=== PATIENT | female | born 1960 | race Native Hawaiian/Other Pacific Islander ===

== ENCOUNTER → 2018-04-20 | Outpatient (CLI) | payer OTHER | LOC: LAB.NP 10:15 | PROVIDERS: ATTEND Physician Assistant | DX: R30.0 Dysuria (principal) ==

== ENCOUNTER 2019-12-26 00:56 | Observation (INO) | payer OTHER ==
[2019-12-26] MEDS ORDERED: ALUM & MAG HYDROX-SIMETHICONE 30 ML, LIDOCAINE VISCOUS 2% 15 ML PO ONE ×2 (00:59)
[2019-12-26] MEDS ORDERED: ONDANSETRON ODT 8 MG TAB SL ONE (00:59)
[2019-12-26] MEDS ORDERED: SUCRALFATE 1 GM/10 ML 1 GM UD PO ONE (01:00)
[2019-12-26] MEDS ORDERED: ALUM & MAG HYDROX-SIMETHICONE 30 ML UD ONE (01:13)
[2019-12-26] MEDS ORDERED: LIDOCAINE HCL 2% (MOUTH-THROAT) 15 ML UD ONE (01:13)
[2019-12-26] MEDS ORDERED: SODIUM CHLORIDE 0.9% 1000ML 1,000 ML IVS ONE (01:36)
[2019-12-26] MEDS ORDERED: POTASSIUM CHLORIDE INJ 40 MEQ 40 MEQ in SODIUM CHLORIDE 0.9% 250ML 250 ML IVPB ONE (01:40)
[2019-12-26] MEDS ORDERED: MORPHINE SULFATE INJ 10 MG/ML VIAL ONE (01:43)
[2019-12-26] MEDS ORDERED: MORPHINE SULFATE INJ 10 MG/ML VIAL IV ONE (01:44)
--- NOTE | 2019-12-26 01:48 | RAD ---
Acute abdominal series on 12/26/2019 CLINICAL INDICATION: Severe epigastric pain COMPARISON: None FINDINGS: CHEST: The lungs are clear. Cardiac, hilar and mediastinal contours are within normal limits. Pulmonary vascularity is within normal limits. ABDOMEN: There is no free air. Mild stool is noted throughout the colon may represent mild constipation. Bowel gas pattern is nonspecific. No abnormal calcification or mass effect is noted. Mild degenerative changes are noted in the spine. IMPRESSION: 1. No acute cardiopulmonary disease. 2. Mild increased stool in the colon that may represent very mild constipation with an otherwise nonspecific abdomen. Electronically signed by: Alex Bean 12/26/2019 1:46 AM CDT
[2019-12-26] MEDS ORDERED: SODIUM CHLORIDE 0.9% 250ML 250 ML ONE (01:49)
[2019-12-26] MEDS ORDERED: POTASSIUM CHLORIDE 40mEq 20ML VIAL ONE (01:50)
[2019-12-26] MEDS ORDERED: PANTOPRAZOLE SODIUM IV 40 MG VIAL IV ONE (02:33)
--- NOTE | 2019-12-26 02:40 | CT ---
PROCEDURE: CT ABDOMEN PELVIS WITH IV CONTRAST CLINICAL HISTORY: severe epigastric pain TECHNIQUE: Contiguous axial images obtained through the abdomen and pelvis following the uneventful administration of IV contrast. Coronal and sagittal reformatted images were provided. This exam was performed according to our departmental dose-optimization program, which includes automated exposure control, adjustment of the mA and/or kV according to patient size and/or use of iterative reconstruction technique. COMPARISON: None available for comparison. FINDINGS: Lung bases: Clear Liver: The liver is enlarged. Gallbladder and biliary system: The gallbladder is distended. No calcified gallstones or gallbladder wall thickening. Pancreas: Unremarkable Spleen: Unremarkable Adrenals: Unremarkable Kidneys: Normal renal cortical enhancement. Excreted contrast within the renal collecting systems bilaterally. No hydronephrosis. Bowel: Intramural fat within portions of the small and large bowel which can be seen in the setting of prior inflammation. Moderate stool. Colonic diverticula without adjacent inflammatory change. No obstruction. No appreciable mucosal thickening. Appendix: The appendix is not definitively visualized. Pericecal suture material/clips suggestive of prior appendectomy. No findings to suggest acute appendicitis. Urinary bladder: The urinary bladder is partially decompressed. Reproductive: There has been a hysterectomy. No adnexal cysts or masses are identified. Lymph nodes: No pathologically enlarged lymph nodes. Peritoneum: No focal fluid collection. No free air. Vessels: Mild atherosclerotic disease. No abdominal aortic aneurysm. Abdominal wall: Small fat-containing umbilical hernia. Bones: Mild multilevel spondylosis. No acute fracture. IMPRESSION: 1. Distended gallbladder. No calcified gallstones or gallbladder wall thickening. 2. Moderate stool. No bowel obstruction. 3. Other findings as above. Electronically signed by: Emily Meza MD 12/26/2019 2:38 AM CDT
[2019-12-26] MEDS ORDERED: MAGNESIUM HYDROXIDE 30 ML UD PO ONE (02:53)
--- NOTE | 2019-12-26 03:07 | ED.PDOC ---
History of Present Illness - General Chief Complaint: Chest Pain/AL Stated Complaint: right breast pain, stomach pain Time Seen by Provider: 12/26/19 00:59 Source: patient Exam Limitations: no limitations - History of Present Illness Initial Comments: The patient is a 59-year-old female presented emergency room with a complaint of recent fairly abrupt onset chest pain. On examination however she has fairly significant tenderness to palpation in the epigastric area and in the left upper quadrant. She reports that the pain radiates to the right lower chest. She had one episode of vomiting. No fever. Pain started about 1 hour prior to arrival here. She was feeling fine prior to that. She does have a history of hypertension but no history of coronary artery disease. Timing/Duration: 1 hour Severity: severe Improving Factors: nothing Worsening Factors: other - Palpation Associated Symptoms: malaise, nausea/vomiting Allergies/Adverse Reactions: Allergies NO KNOWN ALLERGY Allergy (Verified 12/26/19 01:05) Home Medications: Ambulatory Orders Escitalopram [Lexapro] 10 mg PO DAILY 12/26/19 Lisinopril 10 mg PO DAILY 12/26/19 Rosuvastatin Calcium 10 mg PO DAILY 12/26/19 Review of Systems - Review of Systems Constitutional: States: malaise EENTM: States: no symptoms reported Respiratory: States: no symptoms reported Cardiology: States: chest pain Gastrointestinal/Abdominal: States: abdominal pain, nausea, vomiting Genitourinary: States: no symptoms reported Musculoskeletal: States: no symptoms reported Skin: States: no symptoms reported Neurological: States: no symptoms reported Endocrine: States: no symptoms reported All other Systems: No Change from Baseline Past Medical History (General) - Patient Medical History Hx Seizures: No Hx Stroke: No Hx Dementia: No Hx Asthma: No Hx of COPD: No Hx Cardiac Disorders: No Hx Congestive Heart Failure: No Hx Pacemaker: No Hx Hypertension: Yes Hx Thyroid Disease: No Hx Diabetes: No Hx Gastroesophageal Reflux: Yes Hx Renal Disease: No Hx Cancer: No Hx Hepatitis C: No Surgical History: appendectomy, Hysterectomy - Vaccination History Hx Tetanus, Diphtheria Vaccination: No Hx Influenza Vaccination: No Hx Pneumococcal Vaccination: No - Social History Hx Alcohol Use: Yes Family Medical History - Family History Mother Family History: Unknown Physical Exam - Physical Exam General Appearance: Alert, Anxious, Obvious distress Eye Exam: bilateral normal Ears, Nose, Throat: hearing grossly normal, normal ENT inspection, normal phary nx Neck: full range of motion, supple Respiratory: lungs clear, normal breath sounds, no respiratory distress, no accessory muscle use Cardiovascular/Chest: normal peripheral pulses, regular rate, rhythm, no edema, bradycardia Peripheral Pulses: radial,right: 2+, radial,left: 2+, dorsalis pedis,right: 2+, dorsalis pedis,left: 2+ Gastrointestinal/Abdominal: soft, other - See history of present illness. No palpable mass. Rectal Exam: deferred Back Exam: no CVA tenderness, no vertebral tenderness Extremity: normal range of motion, non-tender, normal inspection, no pedal edema, normal capillary refill Neurologic: logistics support II-XII nml as tested, alert, normal mood/affect, oriented x 3 Skin Exam: normal color Comments: Vital Signs - 24 hr 12/26/19 12/26/19 12/26/19 00:56 01:00 01:37 Temperature 97.2 F L Pulse Rate Pulse Rate [ 50 L 49 L 49 L monitor] Respiratory 19 20 Rate Blood Pressure 178/151 152/84 121/76 [Left Arm] O2 Sat by Pulse 100 99 Oximetry 12/26/19 12/26/19 02:09 03:00 Temperature 97.2 F L Pulse Rate 60 Pulse Rate [ 60 55 L monitor] Respiratory 20 16 Rate Blood Pressure 117/46 107/61 [Left Arm] O2 Sat by Pulse 99 99 Oximetry Progress - Progress Progress: 12/26/19 03:11 The patient is a 59-year-old female presented emergency room secondary to fairly abrupt onset pain in the upper abdomen with a episode of vomiting. The patient was feeling radiation of the pain to the right lower chest however pain to palpation localized to the epigastric and left upper quadrant. CT scan shows a mildly distended gallbladder but no evidence of any stones or wall thickening. There is no evidence of increased liver function tests or increased amylase or lipase. She does have moderate stool indicating constipation. She has received a dose of milk of magnesia. The patient received 2 of morphine which helped the pain significantly and the patient is resting comfortably at the moment. Initial cardiac enzymes are negative and the EKG shows mild sinus bradycardia. There is a half a millimeter of elevation of the ST segment in leads II, III and aVF on the EKGs which are not changing. I believe this is simply going to be her baseline not any evidence of ischemia. That being said repeating cardiac enzymes should be done. Based on the presentation however I believe the most likely source of her discomfort is either a significant gastritis or duodenitis or early gallbladder disease. The patient has received acid reducing medications. Additionally I am going to place the patient on Zosyn for now. She has received a dose of Zofran to control any nausea. Additionally she has some mild hypokalemia and has received a dose of oral potassium. The patient will have a set of cardiac enzymes repeated in about an hour. If those are negative we will contact the on-call diesel dinkey engineer for admission overnight to continue the cardiac rule out and hopefully obtain a right upper quadrant ultrasound in the morning. 12/26/19 05:33 Repeat cardiac enzymes are within normal limits. Repeat abdominal exam shows the pain is still essentially in the epigastric area. This is looking less and less like a cardiac source. Most likely this is gastritis possibly complicated by constipation. The patient will be admitted for completing the cardiac rule out and to obtain a right upper quadrant ultrasound in the morning. She will likely need to be redosed with intermittent pain medications as well. Admit for continued care and monitoring. Vital signs have remained stable. The patient does have a stable sinus bradycardia. - Results/Orders Results/Orders: Initial EKG shows sinus bradycardia 57 bpm. Repeat is 48 bpm. Normal R wave progression. Mild right axis deviation. Normal QT interval. Possibly half a millimeter of ST elevation in 2 3 and aVF on both EKGs. No changes from when the patient is having significant pain to when she is sleeping. Initial abdominal series shows constipation. No widening of the mediastinum. No obvious pulmonary pathology. No free air. No evidence of obstruction. CT scan of the abdomen pelvis with contrast shows mild hepatomegaly and a distended gallbladder but no evidence of any stones or gallbladder wall thickening. Moderate stool. No obstruction. See report for details. Laboratory Tests 12/26/19 12/26/19 12/26/19 01:03 01:03 01:03 WBC 7.8 RBC 4.65 Hgb 13.9 Hct 41.4 MCV 89.0 MCH 29.9 MCHC 33.6 RDW 13.8 Plt Count 248 MPV 7.3 L Absolute Neuts (auto) 3.70 Absolute Lymphs (auto) 3.10 Absolute Monos (auto) 0.80 Absolute Eos (auto) 0.20 Absolute Basos (auto) 0.10 Neutrophils % 47.5 Lymphocytes % 39.6 Monocytes % 10.2 H Eosinophils % 2.0 Basophils % 0.7 PT 9.3 INR < 1.00 PTT (SP) 23.3 D-Dimer, Quantitative < 131 L Sodium 140 Potassium 3.1 L Chloride 105 Carbon Dioxide 27 Anion Gap 11.1 L BUN 18 Creatinine 1.04 BUN/Creatinine Ratio 17.3 Random Glucose 119 H Serum Osmolality 282.4 Calcium 9.3 Magnesium 2.1 Total Bilirubin 0.6 AST 49 H ALT 29 Alkaline Phosphatase 67 Creatine Kinase 170 H CK-MB (CK-2) 2.3 CK-MB (CK-2) % Not Reportable Troponin I < 0.02 B-Natriuretic Peptide 41.8 Serum Total Protein 7.3 Albumin 4.3 Globulin 3.0 Albumin/Globulin Ratio 1.4 Amylase 64 Lipase 43 Serum HCG, Qual 12/26/19 01:03 WBC RBC Hgb Hct MCV MCH MCHC RDW Plt Count MPV Absolute Neuts (auto) Absolute Lymphs (auto) Absolute Monos (auto) Absolute Eos (auto) Absolute Basos (auto) Neutrophils % Lymphocytes % Monocytes % Eosinophils % Basophils % PT INR PTT (SP) D-Dimer, Quantitative Sodium Potassium Chloride Carbon Dioxide Anion Gap BUN Creatinine BUN/Creatinine Ratio Random Glucose Serum Osmolality Calcium Magnesium Total Bilirubin AST ALT Alkaline Phosphatase Creatine Kinase CK-MB (CK-2) CK-MB (CK-2) % Troponin I B-Natriuretic Peptide Serum Total Protein Albumin Globulin Albumin/Globulin Ratio Amylase Lipase Serum HCG, Qual Negative Departure - Departure Clinical Impression: Hypokalemia, Uncontrolled pain Abdominal pain Qualifiers: Abdominal location: epigastric Qualified Code(s): R10.13 - Epigastric pain Disposition: Admit Patient Departure Forms: ED Discharge - Pt. Copy, Patient Portal Self Enrollment Instructions: DI for Chest Pain Referrals: Srini Martin MD [Primary Care Provider] - 1-2 Weeks Home Medications: Ambulatory Orders Escitalopram [Lexapro] 10 mg PO DAILY 12/26/19 Lisinopril 10 mg PO DAILY 12/26/19 Rosuvastatin Calcium 10 mg PO DAILY 12/26/19 Decision To Admit - Decistion To Admit Decision to Admit Reason: Medical Nature Decision to Admit Date: 12/26/19 Decision to Admit Time: 05:36
[2019-12-26] MEDS ORDERED: ACETAMINOPHEN 325 MG TAB PO PRN (08:34)
[2019-12-26] MEDS ORDERED: SODIUM CHLORIDE 0.9% (FLUSH) 10 ML SYG IV PRN (08:34)
[2019-12-26] MEDS ORDERED: NITROGLYCERIN 0.4 MG 25 EA TAB SL PRN (08:34)
[2019-12-26] MEDS ORDERED: MORPHINE SULFATE INJ 10 MG/ML VIAL IV PRN (08:34)
[2019-12-26] MEDS ORDERED: IV SET AND CAP CHANGE INJ INJ SCH (09:00)
[2019-12-26] MEDS ORDERED: LISINOPRIL 10 MG TAB PO SCH ×2 (09:00→21:00)
[2019-12-26] MEDS: ESCITALOPRAM 10 MG TAB PO SCH ×2 (09:18→09:50)
[2019-12-26] MEDS: SODIUM CHLORIDE 0.9% (FLUSH) 10 ML SYG IV SCH ×2 (09:18→09:51)
--- NOTE | 2019-12-26 11:50 | US ---
EXAM DESCRIPTION: Gall Bladder: ULTRASOUND. CLINICAL HISTORY: ruq abd pain COMPARISON: CT scan abdomen and pelvis today. TECHNIQUE: Transabdominal scanning: Ashraf-scale and Doppler modes. FINDINGS: Gallbladder: Normal size and shape. Echogenic 5.1 mm wall lesion nonvascular and no shadowing. Not mobile. No stones or sludge. No fluid around the gallbladder. No wall thickening. 2.1 mm. Non-tender with transducer pressure. Common bile duct: caliber 3.7 mm within normal limits. Liver: normal echogenicity; contour liver capsule smooth where seen. No fluid around the liver. Intrahepatic biliary ducts normal caliber. Doppler hepatopedal flow portal vein.. 1.2 cm diameter at the danial hepatis. Long axis right lobe 16.7 cm. Pancreas: Not well visualized. Duct not seen. Aorta: Proximal caliber 1.4 cm within normal limits. Right kidney: long axis 9.2 cm. 12 mm cortical thickness. Normal cortical echogenicity. No echogenic stones, no hydronephrosis, no perirenal fluid.. IMPRESSION: 1. 5 mm polyp in the gallbladder with no stones or sludge. No wall thickening or fluid. Nontender with transducer pressure. Normal caliber common bile duct. 2. Pancreas not well seen. Liver is unremarkable except upper normal limits in size. 3. Right kidney changes are most likely age-related. Normal caliber of the proximal abdominal aorta. Electronically signed by: Wayne Presley MD 12/26/2019 11:48 AM CDT
[2019-12-26 14:53] VITALS: BP 115/60; TEMP 98; O2SAT 99
[2019-12-26] MEDS ORDERED: ESCITALOPRAM 10 MG TAB PO SCH (21:00)
[2019-12-26] MEDS ORDERED: SIMVASTATIN 20 MG TAB PO SCH (21:00)
[2019-12-27] MEDS ORDERED: ASPIRIN TABLET 325 MG TAB PO SCH (09:00)
--- NOTE | 2019-12-27 10:40 | SSS ---
SUPERVISING PHYSICIAN: Roberto Feng MD DATE OF ADMISSION: 12/26/19 DATE OF DISCHARGE: 12/26/19 DISCHARGE DIAGNOSIS: 1. Chest pain. Acute coronary syndrome was ruled out with negative troponins and no changes on EKG. 2. Right upper quadrant abdominal pain with questionable early cholecystitis. 3. Gastroesophageal reflux disease. 4. Hypertension. 5. Hyperlipidemia. HISTORY OF PRESENT ILLNESS: This is a 59-year-old female patient that came to the Emergency Room on the date of admission due to sudden onset of chest pain. She had been working out to [employer] at home for about 3 weeks and after her workout on the evening prior to admission, she just felt poorly. She actually threw up her supper. She could not get comfortable in bed and she got up and went to her chair. Her epigastric area hurt that radiated through to her back. She does have a history in the past of GERD, but has not had too many issues with that lately. It was constant pain and later that evening, it actually radiated up over to her right side. She felt like she had "pulled a muscle." She does have a history of esophageal strictures that have been stretched. She was diaphoretic and she had some shortness of breath. In the Emergency Room, her initial vital signs showed a temperature of 97.2, heart rate 50, blood pressure 152/84. Her respiratory rate was 20, O2 saturation 99% on room air. She received some Zofran and some nitroglycerin. She continued to have pain and finally she received some morphine. That did alleviate her pain. Lab studies showed a CBC that was unremarkable. Her D-dimer was less than 131. Her potassium was slightly low at 3.1. The remainder of her electrolytes were within normal limits. Her AST was slightly high at 49, creatinine kinase 170, but her troponins were less than 0.02. Two hours later, her troponin was also less than 0.02. The patient was placed in observation to rule out acute coronary syndrome. It is also to be noted that her abdominal x-ray showed an increase in stool and her abdomen/pelvis CT showed 1) Distended gallbladder, no calcifications, gallstones or gallbladder wall thickening. 2) Moderate stool. No bowel obstruction. PAST MEDICAL HISTORY: 1. Hyperlipidemia. 2. Hypertension. 3. Anxiety. 4. Gastroesophageal reflux disease. PAST SURGICAL HISTORY: 1. Esophageal strictures that have been dilated. 2. Appendectomy. 3. Hysterectomy with bilateral salpingo-oophorectomy. OUTPATIENT MEDICATIONS: 1. Lisinopril. 2. Lexapro. 3. Crestor. ALLERGIES: NO KNOWN DRUG ALLERGIES. FAMILY HISTORY: Positive for chronic obstructive pulmonary disease, dementia, cerebrovascular accident. SOCIAL HISTORY: She is . She lives in [place]. She denies any tobacco, ETOH or illicit drug use. REVIEW OF SYSTEMS: Negative except as per history of present illness. PHYSICAL EXAMINATION: VITAL SIGNS: Temperature 98, heart rate 56, blood pressure 115/60, respiratory rate 18, O2 saturation 99% on room air. GENERAL: This is a 59-year-old female patient lying in her hospital bed. She is in no acute distress. HEENT: Normocephalic, atraumatic. Pupils are equal and reactive. Oropharynx is clear. NECK: Supple without mass. RESPIRATORY: Essentially clear to auscultation bilaterally. CARDIOVASCULAR: Regular rate and rhythm. GASTROINTESTINAL: Abdomen is soft. It is mildly tender in the epigastric and right upper quadrant. There is no rebound tenderness or guarding. Bowel sounds are positive. EXTREMITIES: No cyanosis, clubbing or edema. NEUROLOGIC: Awake, alert and oriented times three. Cranial nerves II-XII are grossly intact as tested. SKIN: Warm and dry. LABORATORY: Her followup serial cardiac enzymes were all negative. Her triglycerides were 153, LDL 98.9, HDL 42. Amylase 64, lipase 43. Urinalysis was unremarkable. Gallbladder ultrasound showed 1) 5 mm polyp in the gallbladder with no stones or sludge, no wall thickening or fluid, nontender with transducer pressure, normal caliber common bile duct. 2) Pancrease not well seen. Liver unremarkable except upper normal limits in size. 3) Right kidney changes are most likely age related. Normal caliber of proximal abdominal aorta. Echocardiogram showed 1) Normal left ventricular size and function. 2) Left ventricular ejection fraction estimated by 2D at 55-60%. HOSPITAL COURSE: The patient had no further complaints of chest pain. Her right upper quadrant abdomen continued to have some pain off and on. We discussed the possibility that she may need her gallbladder taken out at some point and agreed to see Dr. Hartmann and we reviewed her testing and he has requested that she have a followup appointment in his office after discharge. DISCHARGE PLAN: The patient will be discharged home in stable condition. She is to resume her previous diet and activity and continue her home medications as previously ordered. I have recommended she take a baby aspirin daily until she sees Dr. Martin for followup. At that time, he can review her echocardiogram as well as possibly schedule her for a stress test and any additional cardiac workup he deems necessary. She does have an appointment with Dr. Martin on 01/01/20 at 2:00 PM. The patient has been instructed that is a telemedicine appointment. We were unable to get an appointment with Dr. Hartmann at this time, so that followup appointment needs to be verified. She is to return to the hospital or followup with Dr. Martin for any problems or complications. DISCHARGE MEDICATIONS: 1. Rosuvastatin. 2. Lisinopril. 3. Lexapro. 4. Aspirin. #[id number] MTDD
== END 2019-12-26 17:19 | disposition home or self-care (01) ==
LOC: ER 00:56 → MS 05:47
PROVIDERS: ADMIT Nurse Practitioner Acute Care; ATTEND Nurse Practitioner Acute Care
DX: R07.89 Other chest pain (principal); R10.11 Right upper quadrant pain; K21.9 Gastro-esophageal reflux disease without esophagitis; I10 Essential (primary) hypertension; E78.5 Hyperlipidemia, unspecified; E87.6 Hypokalemia; R10.13 Epigastric pain; R11.2 Nausea with vomiting, unspecified; R00.1 Bradycardia, unspecified; F41.9 Anxiety disorder, unspecified; I34.0 Nonrheumatic mitral (valve) insufficiency; I36.1 Nonrheumatic tricuspid (valve) insufficiency; K82.4 Cholesterolosis of gallbladder; K82.8 Other specified diseases of gallbladder; Z79.899 Other long term (current) drug therapy; Z90.49 Acquired absence of other specified parts of digestive tract; Z90.710 Acquired absence of both cervix and uterus
CPT/HCPCS: 96361; 96366; 96365; 96375; J2270; J3480; J7030; J7050; 85379; 82553 ×4; 80053; 80061; 36415 ×3; 82150; 81001; 85025; 82550 ×4; 84703; 83690; 83735; 85730; 85610; 84484 ×4; 83880; 74019; 74177; 76705; 99285; 93306; 93005 ×2; G0378

== ENCOUNTER 2020-01-25 05:41 | Day surgery (SDC) | payer OTHER ==
[2020-01-25] MEDS ORDERED: LACTATED RINGERS 1,000 ML ONE (06:38)
[2020-01-25] MEDS ORDERED: BUPIVACAINE 0.5% W/EPI 30 ML VIAL INJ ONE (07:24)
[2020-01-25] MEDS ORDERED: SUGAMMADEX SODIUM 200 MG/2 ML VIAL IV ONE (08:03)
[2020-01-25] MEDS ORDERED: KETAMINE HCL 100 MG/ML VIAL ONE (08:03)
[2020-01-25] MEDS ORDERED: DEXMEDETOMIDINE HCL 200 MCG/2 ML INJ IV ONE (08:03)
[2020-01-25] MEDS ORDERED: ROCURONIUM BROMIDE 10 MG/ML VIAL ONE (08:04)
[2020-01-25] MEDS ORDERED: fentaNYL CITRATE INJ 50 MCG/ML 2 ML AMP ONE (08:04)
[2020-01-25] MEDS ORDERED: FAMOTIDINE INJ 10 MG/ML VIAL IV ONE (08:04)
[2020-01-25] MEDS ORDERED: MIDAZOLAM INJ 2 MG/2 ML VIAL ONE (08:04)
[2020-01-25] MEDS ORDERED: LACTATED RINGERS 1,000 ML IVS ONE (09:12)
--- NOTE | 2020-01-25 09:30 | OP ---
DATE OF PROCEDURE: 01/25/20 PREOPERATIVE DIAGNOSIS: 1. Symptomatic cholelithiasis. POSTOPERATIVE DIAGNOSIS: 1. Symptomatic cholelithiasis. PROCEDURE: 1. Laparoscopic cholecystectomy. SURGEON: Srini Hartmann MD. ANESTHESIA: General and local. FINDINGS: There was normal anatomy with mild evidence of chronic scarring. COMPLICATIONS: None. ESTIMATED BLOOD LOSS: Minimal. SPECIMEN: Gallbladder. CONDITION: Stable. PLAN: Discharge. INDICATION: As stated. PROCEDURE: General anesthesia was induced. The patient was prepped and draped in sterile fashion. Marcaine 0.5% with epinephrine was used at all incision sites. While maintaining upward traction, a martha was made near the base of the umbilicus. Veress needle was introduced. There was free flow of fluid into the peritoneal cavity which was insufflated to an appropriate level with CO2 gas. The 5 mm trocar was placed followed by the camera. There was no evidence of bleeding or bowel injury. The patient was positioned and subxiphoid and lateral ports were placed under direct visualization. The gallbladder fundus was easily identified. It was grasped and retracted superiorly and laterally. There were a few anterior adhesions that were taken down until the infundibulum was identified. It was grasped. The duct and artery were then dissected out completely and clearly visualized. Each was triply ligated. The gallbladder was then dissected off the fossa in total and removed in the EndoCatch bag. The fossa was examined. It remained hemostatic. The clips were intact. There was no bleeding or bile leakage. The subxiphoid fascia was then closed with 0 Vicryl using the suture passer. It was airtight and non-bleeding. The remaining trocars were removed. There was no bleeding from the trocar sites. The wounds were then closed with Monocryl. Dressings were applied. The patient was awakened and taken to Recovery in stable condition to be discharged. #[id number] [facility]
[2020-01-25] MEDS ORDERED: HYDROcodone 5MG/APAP 325MG 1 EA TAB ONE ×2 (10:35→11:24)
[2020-01-25 12:03] VITALS: O2SAT 97
[2020-01-25 12:05] VITALS: BP 111/40; TEMP 97
== END 2020-01-25 12:00 | disposition home or self-care (01) ==
LOC: AMB 05:41
PROVIDERS: ATTEND Surgery
DX: K80.10 Calculus of gallbladder with chronic cholecystitis without obstruction (principal); I10 Essential (primary) hypertension; K59.00 Constipation, unspecified; E78.00 Pure hypercholesterolemia, unspecified; E66.9 Obesity, unspecified; Z79.82 Long term (current) use of aspirin; Z79.899 Other long term (current) drug therapy
CPT/HCPCS: 00790; 47562; J2250; J3010; J7120